=== PATIENT | female | born 1995 | race American Indian/Alaskan Native ===

== ENCOUNTER 2018-07-28 17:55 | Emergency (ER) | payer SELFPAY ==
--- NOTE | 2018-07-28 20:33 | Emergency Department Report ---
Upper Respiratory HPI - HPI Chief Complaint: Upper Respiratory Infection Stated Complaint: CHEST PAIN Time Seen by Provider: 07/28/18 20:25 URI Symptoms: Rhinorrhea: Yes, Sore Throat: Yes, Ear Pain: No, Cough: Yes, Shortness of Breath: No, Sick Contacts: Yes, Unable to Take Fluids: No, Urine Output Abnormal: No, Listless Behavior: No Other History: 23-year-old female who presents for cough and sore throat nocturnal fever and wheezing and chest with cough only patient states history of bronchitis however [facility] Meds and Allergies Home Medications: Previous Rx's Medication Instructions Recorded Last Taken Type ALBUTEROL Inhaler(NF) [VENTOLIN 1 puff IH QID #1 inha 07/28/18 Unknown Rx Inhaler(NF)] Azithromycin [Zithromax TAB] 250 mg PO QDAY #6 tablet 07/28/18 Unknown Rx Benzocaine/Menth/Cetylpyrd 8 each MM Q2H PRN #3 packet 07/28/18 Unknown Rx [Cepacol X Strength] Ibuprofen 800 mg PO TID PRN #30 tablet 07/28/18 Unknown Rx predniSONE [Deltasone] 40 mg PO QDAY #10 tab 07/28/18 Unknown Rx Allergies/Adverse Reactions: Allergies Allergy/AdvReac Type Severity Reaction Status Date / Time spicy food Allergy Swelling Uncoded 07/28/18 18:02 ED Review of Systems ROS: Stated complaint: CHEST PAIN Other details as noted in HPI Constitutional: denies: chills, fever Eyes: denies: eye pain, eye discharge, vision change ENT: throat pain, congestion Respiratory: cough, shortness of breath, wheezing Cardiovascular: denies: chest pain, palpitations Endocrine: no symptoms reported Gastrointestinal: denies: abdominal pain, nausea, diarrhea Genitourinary: denies: urgency, dysuria, discharge Musculoskeletal: denies: back pain, joint swelling, arthralgia Skin: denies: rash, lesions Neurological: denies: headache, weakness, paresthesias Psychiatric: denies: anxiety, depression Hematological/Lymphatic: denies: easy bleeding, easy bruising ED Past Medical Hx - Past Medical History Previous Medical History?: No - Surgical History Past Surgical History?: Yes Additional Surgical History: right shoulder dislocation - Social History Smoking Status: Current Every Day Smoker Substance Use Type: None - Medications Home Medications: Home Medications Medication Instructions Recorded Confirmed Last Taken Type ALBUTEROL Inhaler(NF) [VENTOLIN 1 puff IH QID #1 inha 07/28/18 Unknown Rx Inhaler(NF)] Azithromycin [Zithromax TAB] 250 mg PO QDAY #6 tablet 07/28/18 Unknown Rx Benzocaine/Menth/Cetylpyrd 8 each MM Q2H PRN #3 packet 07/28/18 Unknown Rx [Cepacol X Strength] Ibuprofen 800 mg PO TID PRN #30 tablet 07/28/18 Unknown Rx predniSONE [Deltasone] 40 mg PO QDAY #10 tab 07/28/18 Unknown Rx ED Bronchiolitis Physical Exam - Exam General: Vital signs noted. No distress. Alert and acting appropriately. HEENT: Yes Pharyngeal Erythema, Yes Rhinorrhea, No Conjuctival Injection, No Dry Mucous Membranes Ear: Neither TM Bulge, Neither TM Erythema, Neither EAC Discharge Neck: No Adenopathy, No Rigidity Lungs: Yes Good Air Exchange, Yes Cough, No Clear Lung Sounds, No Wheezes, No Stridor, No Nasal Flaring, No Retractions, No Use of Accessory Muscles Heart: Yes Regular, No Murmur Abdomen: Yes Normal Bowel Sounds, No Tenderness, No Peritoneal Signs Skin: No Rash, No Eczema Neurologic: Alert and oriented, no deficits. Musculoskeletal: Unremarkable. ED Physical Exam - General Limitations: No Limitations General appearance: alert, in no apparent distress - Head Head exam: Present: atraumatic, normocephalic - Eye Eye exam: Present: normal appearance - ENT ENT exam: Present: mucous membranes moist - Expanded ENT Exam Expanded Ear exam: Present: normal external inspection Mouth exam: Present: normal external inspection. Absent: trismus Teeth exam: Present: normal inspection Throat exam: Positive: tonsillar erythema, tonsillomegaly. Negative: tonsillar exudate, R peritonsillar mass, L peritonsillar mass - Neck Neck exam: Present: normal inspection, full ROM. Absent: tenderness, meningismus, lymphadenopathy, thyromegaly - Respiratory Respiratory exam: Present: normal lung sounds bilaterally, chest wall tenderness. Absent: respiratory distress, wheezes, stridor - Cardiovascular Cardiovascular Exam: Present: regular rate, normal rhythm, normal heart sounds. Absent: systolic murmur, diastolic murmur, rubs, gallop - GI/Abdominal GI/Abdominal exam: Present: soft, normal bowel sounds - Extremities Exam Extremities exam: Present: normal inspection - Back Exam Back exam: Present: normal inspection - Neurological Exam Neurological exam: Present: alert, oriented X3 - Psychiatric Psychiatric exam: Present: normal affect, normal mood - Skin Skin exam: Present: warm, dry, intact, normal color. Absent: rash ED Course Vital Signs 07/28/18 18:02 Temperature 97.7 F Pulse Rate 78 Respiratory 16 Rate Blood Pressure 110/70 O2 Sat by Pulse 96 Oximetry ED Medical Decision Making - Medical Decision Making Plan treat for bronchitis albuterol inhaler and prednisone [id number] ibuprofen for pain fever patient will follow up with [facility] in 2-3 days or return to ED C symptoms worsen patient verbalizes understanding and agreement with single be DC'd to home in stable condition at this time Critical care attestation.: If time is entered above; I have spent that time in minutes in the direct care of this critically ill patient, excluding procedure time. ED Disposition Clinical Impression: Bronchitis Disposition: DC-01 TO HOME OR SELFCARE Is pt being admited?: No Does the pt Need Aspirin: No Condition: Stable Instructions: Acute Bronchitis (ED) Prescriptions: ALBUTEROL Inhaler(NF) [VENTOLIN Inhaler(NF)] 1 puff IH QID #1 inha Azithromycin [Zithromax TAB] 250 mg PO QDAY #6 tablet Benzocaine/Menth/Cetylpyrd [Cepacol X Strength] 8 each MM Q2H PRN #3 packet PRN Reason: sore throat Ibuprofen 800 mg PO TID PRN #30 tablet PRN Reason: pain fever predniSONE [Deltasone] 40 mg PO QDAY #10 tab Referrals: [facility] [Outside] - 3-5 Days Forms: Work/School Release Form(ED) Time of Disposition: 20:46
[2018-07-28 20:55] VITALS: BP 112/68
== END 2018-07-28 20:52 | disposition home or self-care (01) ==
LOC: ED 17:55
DX: J40 Bronchitis, not specified as acute or chronic (principal); F17.200 Nicotine dependence, unspecified, uncomplicated; Z91.018 Allergy to other foods
CPT/HCPCS: 93005; 93010; 99282